=== PATIENT | male | born 1970 | race Native Hawaiian/Other Pacific Islander ===

== ENCOUNTER → 2016-06-21 | Outpatient (CLI) | payer BC ==
--- NOTE | 2016-06-21 09:24 | DI ---
Indication: ITS.REASON: S89.92XA INJURY knee pain and swelling for one month PROCEDURE: MRI KNEE LEFT W/O CONTRAST: Encounter: Initial Comparison: None Technique: Multiplanar multisequence MR imaging of the left knee was performed without contrast. Findings: The lateral meniscus is intact. There is fraying and small areas of tearing in the posterior horn medial meniscus seen on sagittal image 23 and coronal image eight. The ACL and PCL are intact. The MCL and lateral collateral ligament complex are intact. The extensor mechanism is intact. No acute fracture. There is a large cluster of cysts or multiseptated cystic lesion in the area of Hoffa's fat pad measuring 2.4 x 1.4 cm on sagittal image #10. Etiology is unclear. No acute fracture. Bone marrow signal intensity is normal. The cartilage of the lateral compartment is maintained. Medial compartment cartilage shows deep partial-thickness loss. Patellofemoral compartment cartilage shows some mild thinning in the median ridge. Small joint effusion. Muscular signal intensity is normal. Impression: 1. Small tears of the posterior horn medial meniscus. 2. Multilocular cystic lesion in the anterior and lateral joint space in the area of Hoffa's fat pad could represent parameniscal cysts or some type of ganglion cyst. Neoplasms essentially never arise within the joint space. This could be visualized with arthroscopy. .
== END ==
LOC: IMA 06:32
PROVIDERS: ATTEND Orthopaedic Surgery
DX: S83.242A Other tear of medial meniscus, current injury, left knee, initial encounter (principal); X58.XXXA Exposure to other specified factors, initial encounter; M25.862 Other specified joint disorders, left knee; Y93.9 Activity, unspecified; Y92.9 Unspecified place or not applicable; Y99.9 Unspecified external cause status

== ENCOUNTER → 2016-07-13 | Outpatient (CLI) | payer BC ==
[2016-07-13 07:27] LABS: BASOPHILS % (AUTO) 0.4 % (0-2); EOSINOPHILS # (AUTO) 0.3 T/MM3 (0-0.5); EOSINOPHILS % (AUTO) 3.6 % (0-4); HCT - HEMATOCRIT 42.7 % (41-53); HGB - HEMOGLOBIN 14.5 GM/DL (13.5-17.5); IMMATURE GRANULOCYTE # (AUTO) 0.03 T/MM3 (0.00-0.03); IMMATURE GRANULOCYTE % (AUTO) 0.4 % (0.0-0.5); LYMPHOCYTES % (AUTO) 27.5 % (23-45); MEAN CORPUSCULAR HGB 29.1 UUG (26-34); MEAN CORPUSCULAR VOLUME 85.6 UM3 (80-100); MEAN PLATELET VOLUME 8.6 UM3 (9.4-12.4); MONOCYTES # (AUTO) 0.7 T/MM3 (0-0.8); MONOCYTES % (AUTO) 9.8 % (0-9.0); NEUTROPHILS #(AUTO)-ABSOLUTE 4.3 T/MM3 (1.8-7.7); NEUTROPHILS % (AUTO) 58.3 % (33-66); RED BLOOD COUNT 4.99 M/MM3 (4.50-5.90); WBC - WHITE BLOOD COUNT 7.4 T/MM3 (4.5-11.0)
[2016-07-13 07:35] LABS: ANION GAP 11 MEQ/L (5-15); BUN/CREATININE RATIO 17 RATIO (6-26); CALCIUM 9.6 MG/DL (8.4-10.2); CHLORIDE 105 MEQ/L (98-107); CO2 - CARBON DIOXIDE 29 MEQ/L (22-30); CREATININE 1.2 MG/DL (0.8-1.5); GLOMERULAR FILTRATION RATE 65; GLUCOSE 106 MG/DL (75-110); POTASSIUM 4.3 MEQ/L (3.6-5); SODIUM 145 MEQ/L (134-144)
--- NOTE | 2016-07-13 08:32 | DI ---
INDICATION: ITS.REASON: Z01.89 PRE-OP EXAM PROCEDURE: CHEST 2-VIEWS UPRIGHT (PA \T\ LAT) Encounter: Initial COMPARISON: None FINDINGS: The lungs are clear without evidence of focal abnormal airspace opacity. There is no pleural effusion or pneumothorax. The heart size, mediastinal contours and pulmonary vascularity are within normal limits. There is no significant skeletal abnormality. IMPRESSION: No acute cardiopulmonary disease. .
== END ==
LOC: LAB 07:13
PROVIDERS: ATTEND Orthopaedic Surgery
DX: Z01.89 Encounter for other specified special examinations (principal); M23.232 Derangement of other medial meniscus due to old tear or injury, left knee; M71.22 Synovial cyst of popliteal space [Baker], left knee
CPT/HCPCS: 36415; 80048; 85025; 93005